=== PATIENT | male | born 1980 | race Caucasian/White ===

== ENCOUNTER 2017-03-28 13:42 | Emergency (ER) | payer SELFPAY ==
[~2017-03-28] VITALS: Ht 177.8 cm; Wt 81.8 kg
[~2017-03-28 13:42] MED LIST: AMBIEN 5MG TABLE5 MG PO; FLEXERIL 1010 MG/TAB PO; FLEXERIL5 MG PO; NORCO 325 MG-51 TAB PO; SEROQUEL XR150 MG PO; SEROQUEL300 MG PO; ULTRAM 50MG TAB50 MG PO; VALIUM 5MG T5 MG/TAB PO; XANAX 1MG1 MG PO
[2017-03-28 13:45] VITALS: BP 131/86; PULSE 69; TEMP 97.9
[2017-03-28] MEDS ORDERED: SEROQUEL XR150 MG PO (14:26)
[2017-03-28] MEDS ORDERED: XANAX2 MG PO (14:26)
== END 2017-03-28 14:45 | disposition home or self-care (01) ==
LOC: COL.ER 13:42
DX: F41.9 Anxiety disorder, unspecified (principal); F31.9 Bipolar disorder, unspecified; G89.29 Other chronic pain; F17.210 Nicotine dependence, cigarettes, uncomplicated

== ENCOUNTER 2017-05-25 16:32 | Emergency (ER) | payer OTHER ==
[~2017-05-25] VITALS: Ht 177.8 cm; Wt 75.4 kg
[~2017-05-25 16:32] MED LIST changes: +XANAX2 MG PO
[2017-05-25 16:36] VITALS: BP 143/100; TEMP 98.1
[2017-05-25] MEDS ORDERED: XANAX2 MG PO (17:23)
[2017-05-25] MEDS ORDERED: SEROQUEL300 MG PO (17:23)
[2017-05-25 17:35] VITALS: PULSE 85
== END 2017-05-25 17:35 | disposition home or self-care (01) ==
LOC: COL.ER 16:32
DX: F31.9 Bipolar disorder, unspecified (principal); F41.9 Anxiety disorder, unspecified; F17.210 Nicotine dependence, cigarettes, uncomplicated

== ENCOUNTER 2017-09-01 00:12 | Emergency (ER) | payer SELFPAY ==
[~2017-09-01] VITALS: Ht 177.8 cm; Wt 77.3 kg
[2017-09-01 00:15] VITALS: BP 133/88; TEMP 97.1
[2017-09-01] MEDS ORDERED: ANTIDEPRESSANT (00:18)
[2017-09-01 01:05] VITALS: PULSE 91
== END 2017-09-01 01:06 | disposition home or self-care (01) ==
LOC: COL.ER 00:12
DX: F41.9 Anxiety disorder, unspecified (principal); T42.4X6A Underdosing of benzodiazepines, initial encounter; Z91.138 Patient's unintentional underdosing of medication regimen for other reason; F17.200 Nicotine dependence, unspecified, uncomplicated; F31.9 Bipolar disorder, unspecified

== ENCOUNTER 2017-10-14 13:17 | Emergency (ER) | payer SELFPAY ==
[~2017-10-14] VITALS: Ht 177.8 cm; Wt 78.2 kg
[~2017-10-14 13:17] MED LIST changes: +ANTIDEPRESSANT
[2017-10-14 13:24] VITALS: BP 141/97; TEMP 98.4
[2017-10-14] MEDS ORDERED: MEDROL 4MG DOSPA4 MG PO (14:31)
[2017-10-14 14:54] VITALS: PULSE 80
== END 2017-10-14 14:58 | disposition home or self-care (01) ==
LOC: COL.ER 13:17
DX: M79.602 Pain in left arm (principal); F41.9 Anxiety disorder, unspecified; F32.9 Major depressive disorder, single episode, unspecified; F17.210 Nicotine dependence, cigarettes, uncomplicated; F12.90 Cannabis use, unspecified, uncomplicated

== ENCOUNTER 2018-06-01 10:51 | Emergency (ER) | payer SELFPAY ==
[~2018-06-01] VITALS: Ht 154.9 cm; Wt 79.5 kg
[~2018-06-01 10:51] MED LIST changes: +MEDROL 4MG DOSPA4 MG PO
[2018-06-01 10:55] VITALS: BP 133/82; TEMP 97.1
[2018-06-01] MEDS ORDERED: TYLENOL 325MG325 MG PO (10:58)
[2018-06-01] MEDS ORDERED: XANAX2 MG PO (11:59)
[2018-06-01 12:04] VITALS: PULSE 80
== END 2018-06-01 12:05 | disposition home or self-care (01) ==
LOC: COL.ER 10:51
DX: S39.012A Strain of muscle, fascia and tendon of lower back, initial encounter (principal); F41.9 Anxiety disorder, unspecified; W00.0XXA Fall on same level due to ice and snow, initial encounter

== ENCOUNTER 2018-06-29 14:08 | Emergency (ER) | payer SELFPAY ==
[~2018-06-29] VITALS: Ht 177.8 cm; Wt 79.5 kg
[~2018-06-29 14:08] MED LIST changes: +TYLENOL 325MG325 MG PO
[2018-06-29 14:11] VITALS: BP 139/86; PULSE 82; TEMP 97.8
[2018-06-29 15:06] LABS: COLLECTION METHOD CLEAN CATCH
[2018-06-29 15:13] LABS: MUCOUS Present /lpf; PH 6 (5-8); URINE APPEARANCE Clear; URINE BACTERIA None Seen /hpf; URINE BILIRUBIN Negative (NEGATIVE); URINE BLOOD Negative (NEGATIVE); URINE COLOR Yellow; URINE GLUCOSE Negative (NEGATIVE); URINE KETONE Negative (NEGATIVE); URINE LEUKOCYTE ESTERASE Trace (NEGATIVE); URINE NITRATE Negative (NEGATIVE); URINE PROTEIN(semi-quant) Negative (NEGATIVE)
[2018-06-29] MEDS ORDERED: FLEXERIL 1010 MG/TAB PO (15:45)
[2018-06-29] MEDS ORDERED: NORCO 325 MG-51 TAB PO (15:45)
[2018-06-29] MEDS ORDERED: CEFTIN500 MG PO (15:45)
== END 2018-06-29 16:03 | disposition home or self-care (01) ==
LOC: COL.ER 14:08
PROVIDERS: Nurse Practitioner
DX: S29.012A Strain of muscle and tendon of back wall of thorax, initial encounter (principal); M54.42 Lumbago with sciatica, left side; N39.0 Urinary tract infection, site not specified; F41.9 Anxiety disorder, unspecified; F17.290 Nicotine dependence, other tobacco product, uncomplicated; V23.4XXA Motorcycle driver injured in collision with car, pick-up truck or van in traffic accident, initial encounter; Y92.481 Parking lot as the place of occurrence of the external cause

== ENCOUNTER 2020-07-10 13:50 | Emergency (ER) | payer SELFPAY ==
[~2020-07-10] VITALS: Ht 177.8 cm; Wt 77.3 kg
[~2020-07-10 13:50] MED LIST changes: +CEFTIN500 MG PO
[2020-07-10 14:01] VITALS: BP 151/82; TEMP 98.3
[2020-07-10 15:46] VITALS: PULSE 92
== END 2020-07-10 15:46 | disposition home or self-care (01) ==
LOC: COL.ER 13:50
DX: J06.9 Acute upper respiratory infection, unspecified (principal); F41.9 Anxiety disorder, unspecified; Z11.3 Encounter for screening for infections with a predominantly sexual mode of transmission; F17.200 Nicotine dependence, unspecified, uncomplicated; Z20.822 Contact with and (suspected) exposure to COVID-19

== ENCOUNTER 2022-01-01 13:33 | Emergency (ER) | payer SELFPAY ==
[~2022-01-01] VITALS: Ht 177.8 cm; Wt 86.4 kg
[2022-01-01 14:21] VITALS: TEMP 97.7
[2022-01-01 16:00] VITALS: BP 141/85; PULSE 71
== END 2022-01-01 16:00 | disposition home or self-care (01) ==
LOC: COL.ER 13:33
DX: A54.01 Gonococcal cystitis and urethritis, unspecified (principal); F17.200 Nicotine dependence, unspecified, uncomplicated; Z28.310 Unvaccinated for COVID-19
CPT/HCPCS: J0696